=== PATIENT | female | born 1975 | race Caucasian/White ===

== ENCOUNTER 2018-10-30 16:53 | Emergency (ER) | payer OTHER, SELFPAY ==
[2018-10-30 16:58] VITALS: BP 127/94; PULSE 104; RESP 15; TEMP 36.5; O2SAT 97; BMI 23.8
--- NOTE | 2018-10-30 17:15 | DI.CT.S_ITS ---
PROCEDURE: CT HEAD/BRAIN WO CON INDICATIONS: Fall with nausea TECHNIQUE: Noncontrast 4.5 mm thick angled axial sections acquired from the foramen magnum to the vertex, with coronal and sagittal reformats. For radiation dose reduction, the following was used: automated exposure control, adjustment of mA and/or kV according to patient size. COMPARISON: None. FINDINGS: Image quality: Excellent. CSF spaces: Basal cisterns are patent. No extra-axial fluid collections. Ventricles are normal in size and shape. Brain: No midline shift. No intracranial masses or hemorrhage. Haynes-white matter interface is normal. Skull and face: Calvarium and visualized facial bones are intact, without suspicious lesions. Left cerebral hematoma. Sinuses: Visualized sinuses and mastoids are clear. IMPRESSION: 1. No acute intracranial abnormality. 2. Left periorbital hematoma. Dictated by: Kyra Figueroa M.D. on 10/30/2018 at 17:37 Approved by: Kyra Figueroa M.D. on 10/30/2018 at 17:37
--- NOTE | 2018-10-30 17:16 | DI.CT.S_ITS ---
PROCEDURE: CT FACIAL BONES WO CON INDICATIONS: Fall with swelling to forehead TECHNIQUE: Noncontrast 2.5 mm thick axial images acquired from the mandible through the frontal sinuses, with coronal and sagittal reformatting. For radiation dose reduction, the following was used: automated exposure control, adjustment of mA and/or kV according to patient size. COMPARISON: None. FINDINGS: Image quality: Excellent. Bones and teeth: Orbital moseley are intact. Sinus moseley show no fracture or deformity. Nasal bones and septum are intact. Visualized portions of the mandible demonstrate no fractures or subluxation. Zygomatic arches are intact. Pterygoid plates are intact. Visualized portions of the skull base and auditory canals are intact. Sinuses: Paranasal sinuses are aerated, without fluid levels, mucosal thickening, or mucoceles. Mastoid air cells are aerated. Soft tissues: Left cerebral hematoma. No enlarged lymph nodes. No soft tissue lacerations or debris. Vascular: Visualized vascular structures appear normal in the absence of contrast. Bony vascular foramina and canals are intact. IMPRESSION: No fracture. Dictated by: Kyra Figueroa M.D. on 10/30/2018 at 17:38 Approved by: Kyra Figueroa M.D. on 10/30/2018 at 17:42
--- NOTE | 2018-10-30 18:29 | ED.FALL ---
HPI - Fall General Chief Complaint: Fall Stated Complaint: FALL HIT FACE Time Seen by Provider: 10/30/18 18:00 Source: patient and family Mode of arrival: ambulatory Limitations: no limitations History of Present Illness HPI Narrative: 43-year-old female nonsmoker with noncontributory medical history presents with her and children after suffering a mechanical fall and striking her face. She denies loss of consciousness, vomiting, use of blood thinners, alcohol or distracting injuries. She was walking down a dock at a local [facility] when she tripped and fell down and fell forward striking her face on the ground. She hit the left part of her forehead and has significant swelling around her left eye but denies any blurred or double vision. She denies any other injury and is otherwise well and free of complaint. She does have some lingering headache and a bit of nausea but is otherwise okay complaint: fall Onset (ago): minute(s) Fall from: standing Fall witnessed: yes, by family Place fall occurred: street Loss of consciousness: none Prolonged down time: no Symptoms prior to fall: none Context: tripped/slipped Location of injury: head and face Associated symptoms (after fall): headache Related Data Previous Rx's Medication Instructions Recorded ketorolac 10 mg PO Q4-6H PRN 2 Days tab 10/30/18 Allergies Allergy/AdvReac Type Severity Reaction Status Date / Time No Known Drug Allergies Allergy Verified 10/30/18 16:57 Review of Systems Constitutional Denies chills, Denies fever(s), Reports headache(s), Denies lethargy and Denies weakness Eyes Denies change in vision, Denies eye discharge, Denies irritation and Denies loss of vision ENT Ears, Nose, Mouth, and Throat: Denies change in voice, Reports headache(s), Denies neck pain and Denies sore throat Cardiovascular Denies chest pain, Denies irregular heart rhythm, Denies lightheadedness, Denies palpitations, Denies dyspnea, Denies dyspnea on exertion and Denies orthopnea Respiratory Denies cough, Denies dyspnea, Denies dyspnea on exertion and Denies wheezing Gastrointestinal Gastrointestinal: Denies abdominal pain, Denies change in bowel habits, Denies diarrhea, Reports nausea and Denies vomiting Genitourinary Denies hematuria, Denies flank pain, Denies urinary incontinence and Denies urinary urgency Musculoskeletal Denies neck pain Integumentary/Breasts Denies pruritus, Denies erythema, Denies rash and Denies wounds Neurologic Denies confusion, Reports headache(s), Denies loss of vision and Denies weakness Psychiatric Denies anxiety, Denies confusion, Denies depression, Denies homicidal ideation and Denies suicidal ideation Endocrine Denies palpitations Hematologic/Lymphatic Denies easy bruising Allergic/Immunologic Denies wheezing Exam Narrative Exam Narrative: GENERAL: 43-year-old female obviously uncomfortable, laying on her side under blankets in her room. Ice pack of ring her left eye. GCS 15 HEAD: Bruising, tenderness and swelling around her left eye. No laceration, abrasion or depressed skull fracture EYES: Pupils equal round and reactive. Extraocular motions intact. No scleral icterus. No injection or drainage. No hyphema ENT: Nose without bleeding, purulent drainage or septal hematoma. Throat without erythema, tonsillar hypertrophy or exudate. Uvula midline. Airway patent. NECK: Trachea midline. No JVD or lymphadenopathy. Supple, nontender, no meningeal signs. CARDIOVASCULAR: Regular rate and rhythm without murmurs, gallops, or rubs. RESPIRATORY: Clear to auscultation. Breath sounds equal bilaterally. No wheezes, rales, or rhonchi. GASTROINTESTINAL: Abdomen soft, non-tender, nondistended. No hepato-splenomegaly, or palpable masses. No guarding. EXTREMITIES: No clubbing, cyanosis, or edema. No joint tenderness, effusion, or edema noted. BACK: Nontender without deformity or crepitance. No flank tenderness. NEURO: AOx3. SKIN: No rash or erythema. Initial Vital Signs Initial Vital Signs: Vital Signs Temperature 97.7 F 10/30/18 16:58 Pulse Rate 104 H 10/30/18 16:58 Respiratory Rate 15 10/30/18 16:58 Blood Pressure 127/94 H 10/30/18 16:58 Pulse Oximetry 97 10/30/18 16:58 Course Orders Ordered: ED Orders 10/30/18 17:15 CT head/brain wo con Stat 10/30/18 17:16 CT facial bones wo con Stat Discontinued Medications Ondansetron HCl (Zofran Odt) 4 mg PO NOW ONE Stop: 10/30/18 19:18 Last Admin: 10/30/18 19:19 Dose: 4 mg Vital Signs - 8 hr 10/30/18 19:10 Pulse Rate 84 Respiratory Rate 16 Blood Pressure [Left Arm] 119/68 Pulse Oximetry 100 MDM - Fall Imaging Data CT scan - head: Radiologist's impression: [address] [address] [address] Scan Report Signed Patient: Simran Hathaway#: [id number] : 1975Acct:[id number] Age/Sex: 43 / FDate of Service: 10/30/18 Loc: ED Accession Number: [id number] Procedure: CT head/brain wo con Ordering Provider: Alma Neves-LEO PROCEDURE: CT HEAD/BRAIN WO CON INDICATIONS: Fall with nausea TECHNIQUE: Noncontrast 4.5 mm thick angled axial sections acquired from the foramen magnum to the vertex, with coronal and sagittal reformats. For radiation dose reduction, the following was used: automated exposure control, adjustment of mA and/or kV according to patient size. COMPARISON: None. FINDINGS: Image quality: Excellent. CSF spaces: Basal cisterns are patent. No extra-axial fluid collections. Ventricles are normal in size and shape. Brain: No midline shift. No intracranial masses or hemorrhage. Haynes-white matter interface is normal. Skull and face: Calvarium and visualized facial bones are intact, without suspicious lesions. Left cerebral hematoma. Sinuses: Visualized sinuses and mastoids are clear. IMPRESSION: 1. No acute intracranial abnormality. 2. Left periorbital hematoma. Dictated by: Kyra Figueroa M.D. on 10/30/2018 at 17:[address] [address] [address] Scan Report Signed Patient: Simran Hathaway#: [id number] : 1975Acct:[id number] Age/Sex: 43 / FDate of Service: 10/30/18 Loc: ED Accession Number: [id number] Procedure: CT facial bones wo con Ordering Provider: Alma Neves-LEO PROCEDURE: CT FACIAL BONES WO CON INDICATIONS: Fall with swelling to forehead TECHNIQUE: Noncontrast 2.5 mm thick axial images acquired from the mandible through the frontal sinuses, with coronal and sagittal reformatting. For radiation dose reduction, the following was used: automated exposure control, adjustment of mA and/or kV according to patient size. COMPARISON: None. FINDINGS: Image quality: Excellent. Bones and teeth: Orbital moseley are intact. Sinus moseley show no fracture or deformity. Nasal bones and septum are intact. Visualized portions of the mandible demonstrate no fractures or subluxation. Zygomatic arches are intact. Pterygoid plates are intact. Visualized portions of the skull base and auditory canals are intact. Sinuses: Paranasal sinuses are aerated, without fluid levels, mucosal thickening, or mucoceles. Mastoid air cells are aerated. Soft tissues: Left cerebral hematoma. No enlarged lymph nodes. No soft tissue lacerations or debris. Vascular: Visualized vascular structures appear normal in the absence of contrast. Bony vascular foramina and canals are intact. IMPRESSION: No fracture. Dictated by: Kyra Figueroa M.D. on 10/30/2018 at 17:38 Approved by: Kyra Figueroa M.D. on 10/30/2018 at 17:42 Discharge Plan Departure Patient Disposition: Home Clinical Impression: Concussion Qualifiers: Encounter type: initial encounter Loss of consciousness presence/duration: without LOC Qualified Code(s): S06.0X0A - Concussion without loss of consciousness, initial encounter Discharge Date/Time: 10/30/18 19:21 Interventions: ED Discharge Assessment Last Done: 10/30/18 19:20 Instructions: DI for Concussion Activity Restrictions/Additional Instructions: You have a slight concussion and will likely have a mild headache and some nausea for a few days. Avoiding highly stimulating activities and even TV or computers may be helpful in minimizing your symptoms. Avoid activities that will put you at risk for another head injury for at least a week. You can take tylenol or motrin for headache or the prescription provided for nausea/vomiting. Return for worsening or persistent symptoms Prescriptions: New ketorolac 10 mg tablet 10 mg PO Q4-6H PRN (Reason: pain) 2 Days RF: 0
[2018-10-30 19:10] VITALS: BP 119/68; PULSE 84; RESP 16; O2SAT 100
[2018-10-30] MEDS: ONDANSETRON 4 MG ODT PO (19:19)
--- NOTE | 2018-10-31 01:45 | ED_ITS ---
HPI - Fall General Chief Complaint: Fall Stated Complaint: FALL HIT FACE Time Seen by Provider: 10/30/18 18:00 Source: patient and family Mode of arrival: ambulatory Limitations: no limitations History of Present Illness HPI Narrative: 43-year-old female nonsmoker with noncontributory medical history presents with her and children after suffering a mechanical fall and striking her face. She denies loss of consciousness, vomiting, use of blood thinners, alcohol or distracting injuries. She was walking down a dock at a local [facility] when she tripped and fell down and fell forward striking her face on the ground. She hit the left part of her forehead and has significant swelling around her left eye but denies any blurred or double vision. She denies any other injury and is otherwise well and free of complaint. She does have some lingering headache and a bit of nausea but is otherwise okay complaint: fall Onset (ago): minute(s) Fall from: standing Fall witnessed: yes, by family Place fall occurred: street Loss of consciousness: none Prolonged down time: no Symptoms prior to fall: none Context: tripped/slipped Location of injury: head and face Associated symptoms (after fall): headache Related Data Previous Rx's Medication Instructions Recorded ketorolac 10 mg PO Q4-6H PRN 2 Days tab 10/30/18 Allergies Allergy/AdvReac Type Severity Reaction Status Date / Time No Known Drug Allergies Allergy Verified 10/30/18 16:57 Review of Systems Constitutional Denies chills, Denies fever(s), Reports headache(s), Denies lethargy and Denies weakness Eyes Denies change in vision, Denies eye discharge, Denies irritation and Denies loss of vision ENT Ears, Nose, Mouth, and Throat: Denies change in voice, Reports headache(s), Denies neck pain and Denies sore throat Cardiovascular Denies chest pain, Denies irregular heart rhythm, Denies lightheadedness, Denies palpitations, Denies dyspnea, Denies dyspnea on exertion and Denies orthopnea Respiratory Denies cough, Denies dyspnea, Denies dyspnea on exertion and Denies wheezing Gastrointestinal Gastrointestinal: Denies abdominal pain, Denies change in bowel habits, Denies diarrhea, Reports nausea and Denies vomiting Genitourinary Denies hematuria, Denies flank pain, Denies urinary incontinence and Denies urinary urgency Musculoskeletal Denies neck pain Integumentary/Breasts Denies pruritus, Denies erythema, Denies rash and Denies wounds Neurologic Denies confusion, Reports headache(s), Denies loss of vision and Denies weakness Psychiatric Denies anxiety, Denies confusion, Denies depression, Denies homicidal ideation and Denies suicidal ideation Endocrine Denies palpitations Hematologic/Lymphatic Denies easy bruising Allergic/Immunologic Denies wheezing Exam Narrative Exam Narrative: GENERAL: 43-year-old female obviously uncomfortable, laying on her side under blankets in her room. Ice pack of ring her left eye. GCS 15 HEAD: Bruising, tenderness and swelling around her left eye. No laceration, abrasion or depressed skull fracture EYES: Pupils equal round and reactive. Extraocular motions intact. No scleral icterus. No injection or drainage. No hyphema ENT: Nose without bleeding, purulent drainage or septal hematoma. Throat without erythema, tonsillar hypertrophy or exudate. Uvula midline. Airway patent. NECK: Trachea midline. No JVD or lymphadenopathy. Supple, nontender, no meningeal signs. CARDIOVASCULAR: Regular rate and rhythm without murmurs, gallops, or rubs. RESPIRATORY: Clear to auscultation. Breath sounds equal bilaterally. No wheezes, rales, or rhonchi. GASTROINTESTINAL: Abdomen soft, non-tender, nondistended. No hepato- splenomegaly, or palpable masses. No guarding. EXTREMITIES: No clubbing, cyanosis, or edema. No joint tenderness, effusion, or edema noted. BACK: Nontender without deformity or crepitance. No flank tenderness. NEURO: AOx3. SKIN: No rash or erythema. Initial Vital Signs Initial Vital Signs: Vital Signs Temperature 97.7 F 10/30/18 16:58 Pulse Rate 104 H 10/30/18 16:58 Respiratory Rate 15 10/30/18 16:58 Blood Pressure 127/94 H 10/30/18 16:58 Pulse Oximetry 97 10/30/18 16:58 Course Orders Ordered: ED Orders 10/30/18 17:15 CT head/brain wo con Stat 10/30/18 17:16 CT facial bones wo con Stat Discontinued Medications Ondansetron HCl (Zofran Odt) 4 mg PO NOW ONE Stop: 10/30/18 19:18 Last Admin: 10/30/18 19:19 Dose: 4 mg Vital Signs - 8 hr 10/30/18 19:10 Pulse Rate 84 Respiratory Rate 16 Blood Pressure [Left Arm] 119/68 Pulse Oximetry 100 MDM - Fall Imaging Data CT scan - head: Radiologist's impression: [address] [address] [address] Scan Report Signed Patient: Simran Hathaway#: [id number] : 1975Acct:[id number] Age/Sex: 43 / FDate of Service: 10/30/18 Loc: ED Accession Number: [id number] Procedure: CT head/brain wo con Ordering Provider: Alma Neves-LEO PROCEDURE: CT HEAD/BRAIN WO CON INDICATIONS: Fall with nausea TECHNIQUE: Noncontrast 4.5 mm thick angled axial sections acquired from the foramen magnum to the vertex, with coronal and sagittal reformats. For radiation dose reduction, the following was used: automated exposure control, adjustment of mA and/or kV according to patient size. COMPARISON: None. FINDINGS: Image quality: Excellent. CSF spaces: Basal cisterns are patent. No extra-axial fluid collections. Ventricles are normal in size and shape. Brain: No midline shift. No intracranial masses or hemorrhage. Haynes-white matter interface is normal. Skull and face: Calvarium and visualized facial bones are intact, without suspicious lesions. Left cerebral hematoma. Sinuses: Visualized sinuses and mastoids are clear. IMPRESSION: 1. No acute intracranial abnormality. 2. Left periorbital hematoma. Dictated by: Kyra Figueroa M.D. on 10/30/2018 at 17:[address] [address] [address] Scan Report Signed Patient: Simran Hathaway#: [id number] : 1975Acct:[id number] Age/Sex: 43 / FDate of Service: 10/30/18 Loc: ED Accession Number: [id number] Procedure: CT facial bones wo con Ordering Provider: Alma Neves-LEO PROCEDURE: CT FACIAL BONES WO CON INDICATIONS: Fall with swelling to forehead TECHNIQUE: Noncontrast 2.5 mm thick axial images acquired from the mandible through the frontal sinuses, with coronal and sagittal reformatting. For radiation dose reduction, the following was used: automated exposure control, adjustment of mA and/or kV according to patient size. COMPARISON: None. FINDINGS: Image quality: Excellent. Bones and teeth: Orbital moseley are intact. Sinus moseley show no fracture or deformity. Nasal bones and septum are intact. Visualized portions of the mandible demonstrate no fractures or subluxation. Zygomatic arches are intact. Pterygoid plates are intact. Visualized portions of the skull base and auditory canals are intact. Sinuses: Paranasal sinuses are aerated, without fluid levels, mucosal thickening, or mucoceles. Mastoid air cells are aerated. Soft tissues: Left cerebral hematoma. No enlarged lymph nodes. No soft tissue lacerations or debris. Vascular: Visualized vascular structures appear normal in the absence of contrast. Bony vascular foramina and canals are intact. IMPRESSION: No fracture. Dictated by: Kyra Figueroa M.D. on 10/30/2018 at 17:38 Approved by: Kyra Figueroa M.D. on 10/30/2018 at 17:42 Discharge Plan Departure Patient Disposition: Home Clinical Impression: Concussion Qualifiers: Encounter type: initial encounter Loss of consciousness presence/duration: without LOC Qualified Code(s): S06.0X0A - Concussion without loss of consciousness, initial encounter Discharge Date/Time: 10/30/18 19:21 Interventions: ED Discharge Assessment Last Done: 10/30/18 19:20 Instructions: DI for Concussion Activity Restrictions/Additional Instructions: You have a slight concussion and will likely have a mild headache and some nausea for a few days. Avoiding highly stimulating activities and even TV or computers may be helpful in minimizing your symptoms. Avoid activities that will put you at risk for another head injury for at least a week. You can take tylenol or motrin for headache or the prescription provided for nausea/vomiting. Return for worsening or persistent symptoms Prescriptions: New ketorolac 10 mg tablet 10 mg PO Q4-6H PRN (Reason: pain) 2 Days RF: 0
== END 2018-10-30 19:21 | disposition home or self-care (01) ==
PROVIDERS: Emergency Provider Emergency Medicine
DX: S06.0X0A Concussion without loss of consciousness, initial encounter (principal); W19.XXXA Unspecified fall, initial encounter
CPT/HCPCS: 70450; 70486; 99282; 99284